=== PATIENT | female | born 1980 | race Caucasian/White ===

== ENCOUNTER 2024-01-11 20:25 | Emergency (ER) | payer MEDICAID, SELFPAY ==
[2024-01-11 20:26] VITALS: BP 135/100; PULSE 94; RESP 16; TEMP 36.1; O2SAT 98; BMI 26.4
--- NOTE | 2024-01-11 20:32 | RAD_ITS ---
EXAM: XR CHEST, 1 VIEW CLINICAL INDICATION: Hypoxia due to overdose TECHNIQUE: Frontal view of the chest. COMPARISON: No relevant prior studies available. FINDINGS: LUNGS AND PLEURAL SPACES: Unremarkable. No consolidation or edema. No pneumothorax. No effusion. HEART: Unremarkable. Cardiac silhouette not enlarged. MEDIASTINUM: Central airways and mediastinal contour are unremarkable. BONES/JOINTS: There is narrowing of the left glenohumeral joint. There is a right shoulder prosthesis. No acute fracture. SOFT TISSUES: Unremarkable. RAD/Chest 1 View (Portable) IMPRESSION: No acute findings in the chest. Electronically Signed: Dao Smith MD at 20:47 EDT ,
--- NOTE | 2024-01-11 20:36 | EDS_ITS ---
HPI History of Present Illness Chief Complaint: Overdose Detail of Chief Complaint: Apparent overdose Informant: other Onset/Context/Timing Onset: - (Unknown. See HPI narrative) Context: - (Presumed acute) Timing: Continuous Quality: Unresponsive with apnea, palpable pulse, pallor with central cyanosis and d Mechanism/Context: Yes other Current Severity: Severe Maximum Severity: Severe Worsened by: Patient informed nurse at 2035 that she did fentanyl. Relieved by: Intranasal Narcan Associated Symptoms Associated Symptoms: other (Unable to determine) Length of loss of consciousness: Unresponsiveness for 10 minutes Narrative Narrative: Reportedly patient was driven to hospital by friend. She was drug from vehicle. When entered the room she was diaphoretic ashen with central and peripheral cyanosis and delayed cap refill. She was in not breathing. Does have a palpable pulse. She was hooked on the monitor. She was hypoxic with a saturation of 41%. Patient was ventilated by bag valve mask. She received intranasal Narcan. IV was established per nurse right antecubital fossa. No other history is available According to nursing staff she has a history of drug use. PFSH [facility] Medical History unable to obtain unable to obtain Home Medications nitrofurantoin monohydrate/macrocrystals 100 mg capsule 100 mg PO Q12 #10 CAPSULES 01/11/24 [Rx Last Taken Unknown] Allergy/AdvReac Type Severity Reaction Status Date / Time No Known Allergies Allergy Verified 01/11/24 21:04 Social History (Updated 01/11/24 @ 20:[address] Jose Roberto Durand MD) household members: none Smoking Status: Current every day smoker tobacco type: cigarettes substance use type: opiates ROS ROS ED Review of Systems ROS Unobtainable: due to mental status EXAM Physical Exam Const Vital Signs: 01/11/24 20:26 01/11/24 20:55 01/11/24 21:37 Temperature 97 F L Temperature Source Temporal Pulse Rate 94 82 86 Respiratory Rate 16 16 12 Blood Pressure 135/100 H 117/69 Blood Pressure Mean 111 85 Pulse Ox 98 100 98 Oxygen Delivery Method Room Air Room Air 01/11/24 22:00 01/11/24 22:30 Temperature Temperature Source Pulse Rate 70 81 Respiratory Rate 18 15 Blood Pressure 114/83 H 107/80 Blood Pressure Mean 93 89 Pulse Ox 94 98 Oxygen Delivery Method Room Air Room Air Positive well nourished and well developed Constitutional Narrative: Ashen, pale with diaphoresis and central and peripheral cyanosis. As previously mentioned pulse ox was initially 41%. General Appearance ED: well developed and pallor HEENT HEENT Narrative: Poor dentition normocephalic and atraumatic Eyes Eyes Narrative: Pinpoint pupils. Disconjugate gaze Neck no lymphadenopathy and supple Resp Resp Narrative: No respiratory effort. Cardio regular rate, regular rhythm, S1 normal heart sound, S2 normal heart sound and no murmurs GI non-tender, non-distended and no masses Extremity Extremity Narrative: Track martinez Neuro No oriented x3 and No CN's II-XII intact bilaterally Neuro Narrative: GCS 3 Sensorium / Orientation: Negative for alert Speech: Negative for speech normal Gait (Neuro): Negative for normal gait Psych Negative for mental status grossly normal Skin Skin Narrative: Central and peripheral cyanosis with diaphoresis and ashen in appearance General Skin Exam: pallor MDM MDM MDM Narrative Medical decision making narrative: With history of drug use pinpoint pupils suspect opiate overdose. Patient recei gurjit intranasal Narcan. IV was established. Appropriate blood work was obtained. Patient was ventilated via [id number] by nurse and me. Question crackles at the base. Will obtain chest x-ray to evaluate for pulmonary edema due to respiratory failure secondary to opiate overdose. Patient will need to be observed. Presently there is no information since her name is unknown. Lab Data Attestation: I reviewed the patient's lab results. Lab results narrative: CBC reveals elevated H&H of 610.5 and 50.7. Indices are normal. White count is normal. Predominantly lymphocytes. Electrolyte panel is remarkable glucose of 201 with a normal CO2 anion gap. Labs: Laboratory Results - last 24 hr 01/11/24 01/11/24 20:30 21:22 WBC 10.4 RBC 5.54 H Hgb 16.5 H Hct 50.7 H MCV 91.5 MCH 29.8 MCHC 32.5 RDW Std Deviation 45.6 H RDW Coeff of Tamera 13.4 Plt Count 348 MPV 8.7 Immature Gran % (Auto) 0.300 Neut % (Auto) 38.4 L Lymph % (Auto) 55.4 H [place] % (Auto) 4.8 Eos % (Auto) 0.7 Baso % (Auto) 0.4 Absolute Neuts (auto) 4.0 Absolute Lymphs (auto) 5.77 H Nucleated RBC % 0 Differential Comment SEE COMMENT Atypical Lymphocytes 2+ Reactive Lymphocytes 1+ Platelet Estimate ADEQUATE RBC Morphology N CHROM Anisocytosis RARE Macrocytosis RARE Ovalocytes RARE Sodium 137 Potassium 3.4 L Chloride 103 Carbon Dioxide 30.0 Anion Gap 4 L BUN 9 Creatinine 1.01 Estim Creat Clear Calc 75.47 Est GFR (MDRD) Af Amer TNP Est GFR (MDRD) Non-Af TNP BUN/Creatinine Ratio 8.9 L Glucose 201 H Calcium 8.9 Urine Color Yellow Urine Clarity Sl. Cloudy Urine pH 6.0 Ur Specific [place] 1.025 Urine Protein 30 H Urine Glucose (UA) Normal Urine Ketones Negative Urine Occult Blood 10 H Urine Nitrite Positive H Urine Bilirubin Negative Urine Urobilinogen Normal Ur Leukocyte Esterase 100 H Urine RBC 0-5 SEEN Urine WBC 5-10 SEEN Ur Squamous Epith Cells 0-5 SEEN Urine Bacteria 4+ Urine Mucus 0 SEEN Urine Opiates Screen NEGATIVE Urine Methadone Screen NEGATIVE Ur Barbiturates Screen NEGATIVE Ur Phencyclidine Scrn NEGATIVE Ur Amphetamines Screen POSITIVE H MDMA (Ecstasy) Screen POSITIVE H U Benzodiazepines Scrn NEGATIVE Urine Cocaine Screen POSITIVE H U Cannabinoids Screen POSITIVE H Ur Drug Screen Comment Talk screen was positive for amphetamines, ecstasy, cannabis, cocaine. Radiography Chest X-Ray - ED: 1 View and Read by ED Physician (Single view portable chest x- ray reveals normal cardiac silhouette size. Hilum is normal. Lung parenchyma is normal. Osseous structures are unremarkable. Apparently patient has a prosthetic right shoulder. This is partially seen on the chest x-ray. This was apparently reviewed interpreted by m) Diagnostic Testing: Clinical Impression(s) from Imaging Studies Chest X-Ray 01/11/24 20:32 IMPRESSION: No acute findings in the chest. Electronically Signed: Dao Smith MD at 20:47 EDT , Critical Care Time Critical Care Time: Yes Critical care time (excluding procedures): 30-74 minutes (History, physical, review of prior records, ventilation with [id number], treatment for opiate overdose), Including time spent:, Discussing w/Patient &/or Family/Nursing Home Manager and Performing Direct Patient Care at Bedside Discharge Plan Triage Chief Complaint: Overdose ED Provider: Jose Roberto Durand Dx/Rx/DC Orders Clinical Impression: Acute cystitis, Amphetamine use, Cocaine use, Ecstasy use disorder, mild, Acute hypoxemic respiratory failure, Accidental overdose of non-opiate analgesics Instructions: ED Cocaine And Crack Abuse, ED Overdose, Opiate, ED Cystitis Female Adult Prescriptions: New nitrofurantoin monohyd/m-cryst [nitrofurantoin monohyd/m-cryst] 100 mg capsule 100 mg PO Q12 Qty: 10 0RF Primary Care Provider: Care Physician,No Primary Referrals: Care Physician,No Primary [Primary Care Provider] - Disposition Disposition: Home, Self Care
[2024-01-11 20:38] LABS: Absolute Lymphocyte Count 5.77 X10^3/uL (0.83-4.51); Basophil# 0.04 X10^3/uL; Basophil% 0.4 % (0-1); Eosinophil# 0.07 X10^3/uL; Eosinophils% 0.7 % (0-5); Hematocrit 50.7 % (37-47); Hemoglobin 16.5 g/dL (12.0-15.0); Lymphocyte # 5.77 X10^3/ul (0.83-4.51); Lymphocyte % 55.4 % (19-41); Mean Corp Hgb Conc 32.5 g/dL (32-36); Mean Corpuscular Hgb 29.8 pg (27.0-32.0); Mean Corpuscular Volume 91.5 fL (81-99); Mean Platelet Vol. 8.7 fl (6.2-12.0); Monocyte% 4.8 % (0-10); NRBC Flagged by Analyzer 0 % (0-5); Neutrophil # 4.01 X10^3/uL (2.7-7.7); Neutrophil % 38.4 % (47-70); POSITIVE DIFFERENTIAL YES; POSITIVE MORPHOLOGY YES; Platelet Count 348 K/mm3 (150-450); RBC Distribution Width CV 13.4 % (11.6-14.6); RBC Distribution Width SD 45.6 fl (35.1-43.9); Red Blood Count 5.54 M/mm3 (4.2-5.4); White Blood Count 10.4 K/mm3 (4.4-11.0)
--- NOTE | 2024-01-11 20:48 | ED.RN ---
Pt admits to doing fentanyl. Will not admit how she did it but did admit to using fentanyl. Her friend that brought her in did not come inside, he drove off.
[2024-01-11 20:52] LABS: Anion Gap 4 (5-15); BUN 9 mg/dL (7-18); BUN/Creat Ratio 8.9 RATIO (10-20); Calcium,Total 8.9 mg/dL (8.5-10.1); Chloride 103 mmol/L (98-107); Creatinine, Serum 1.01 mg/dL (0.55-1.02); Differential Indicated SCAN CRITERIA MET; Estimated Creatinine Clearance 75.47 ml/min; Glucose 201 mg/dL (74-106); Potassium 3.4 mmol/L (3.5-5.1); Sodium Level 137 mmol/L (136-145)
[2024-01-11 20:55] VITALS: BP 117/69; PULSE 82; RESP 16; O2SAT 100
[2024-01-11 21:29] LABS: Anisocytosis RARE; Atypical Lymphocyte 2+ %; Macrocytosis RARE; Ovalocyte RARE; Platelet Estimate ADEQUATE (ADEQ); Reactive Lymphocyte 1+; Red Cell Morphology N CHROM NORMAL (NORM C&C)
[2024-01-11 21:30] LABS: Mucous, Urine 0 SEEN /hpf (<or=2+)
[2024-01-11 21:35] LABS: Color, Urine Yellow (Yellow); Glucose, Dipstick Normal (Normal); Ketone-Dipstick Negative (Negative); Leukocyte Esterase-Dipstick 100 /ul (Negative); Nitrite-Dipstick Positive (Negative); Occult Blood-Urine 10 /ul (Negative); Protein-Dipstick 30 mg/dl (Negative); Specific Gravity, Urine 1.025 (1.002-1.030); Urine Bilirubin Dipstick Negative (Negative); Urine Clarity Sl. Cloudy (Clear); Urine Urobilinogen Normal (Normal)
[2024-01-11 21:37] VITALS: PULSE 86; RESP 12; O2SAT 98
[2024-01-11 22:00] VITALS: BP 114/83; PULSE 70; RESP 18; O2SAT 94
[2024-01-11 22:00] LABS: Bacteria 4+ /hpf (None Seen); White Blood Cells 5-10 SEEN /hpf (0-5)
[2024-01-11 22:01] LABS: Red Blood Cells-Urine 0-5 SEEN /hpf (0-5); Squamous Epithelial Cells - UA 0-5 SEEN /hpf (5-10)
[2024-01-11 22:04] LABS: Amphetamine Urine VISTA POSITIVE (<1000 ng/mL); Barbiturate Urine VISTA NEGATIVE (< 200 ng/mL); Benzodiazepine Urine VISTA NEGATIVE (< 200 ng/mL); Cocaine Urine VISTA POSITIVE (< 300 ng/mL); Ecstacy Urine VISTA POSITIVE (< 500 ng/mL); Methadone Urine VISTA NEGATIVE (< 300 ng/mL); PCP Urine VISTA NEGATIVE (< 25 ng/mL); THC Urine VISTA POSITIVE (< 50 ng/mL); Vista UDS pH Range 6
[2024-01-11] MEDS: Nitrofurantoin Macrocrystals 100 MG Capsule PO (22:11)
[2024-01-11 22:30] VITALS: BP 107/80; PULSE 81; RESP 15; O2SAT 98
[2024-01-11 22:43] VITALS: BP 107/80; PULSE 77; RESP 12; TEMP 36.2; O2SAT 97
== END 2024-01-11 22:48 | disposition home or self-care (01) ==
PROVIDERS: Emergency Provider Emergency Medicine; Visit Provider Emergency Medicine
DX: T40.411A Poisoning by fentanyl or fentanyl analogs, accidental (unintentional), initial encounter (principal); J96.01 Acute respiratory failure with hypoxia; R23.0 Cyanosis; N30.00 Acute cystitis without hematuria; F15.90 Other stimulant use, unspecified, uncomplicated; F16.90 Hallucinogen use, unspecified, uncomplicated; F14.90 Cocaine use, unspecified, uncomplicated; F17.210 Nicotine dependence, cigarettes, uncomplicated
CPT/HCPCS: 71045; 80048; 80307; 81001; 85025; 87086; 87088; 87186; 93005; 99283; A4216